=== PATIENT | male | born 1975 ===

== ENCOUNTER → 2019-09-29 | Outpatient (CLI) | payer SELFPAY | END | disposition home or self-care (01) | LOC: PLD 13:32 → LAB SHORT 13:32 | DX: B35.1 Tinea unguium (principal); L60.2 Onychogryphosis | CPT/HCPCS: 88305; 88312 ==

== ENCOUNTER → 2022-01-19 | Outpatient (CLI) | payer SELFPAY | END | disposition home or self-care (01) | LOC: LAB SHORT 13:27 → PLD 13:27 | DX: D22.71 Melanocytic nevi of right lower limb, including hip (principal) | CPT/HCPCS: 88305 ==